=== PATIENT | male | born 1985 | race Two or more races ===

== ENCOUNTER 2022-12-18 10:25 | Inpatient (IN) | payer MEDICAID ==
[~2022-12-18] VITALS: Ht 170.2 cm; Wt 98.0 kg
--- NOTE | 2022-12-18 10:42 | NUR ---
BIBSELF C/O RIGHT UPPER ABDOMINAL PAIN [id number] , + NAUSEA AND VOMITING , NO DIARRHEA. ON MONITOR RIGHT NOW. NOTIFIED
--- NOTE | 2022-12-18 10:47 | NUR ---
IV LINE LEFT AC 18
--- NOTE | 2022-12-18 10:47 | NUR ---
BLOOD SAMPLE TAKEN SENT TO LAB
--- NOTE | 2022-12-18 10:50 | NUR ---
URINE SAMPLE TAKEN SENT TO LAB
[2022-12-18] MEDS ORDERED: ONDANSETRON HCL/PF 4 MG/2 ML VIAL ONE (10:56)
[2022-12-18] MEDS ORDERED: MORPHINE SULFATE INJ 4 MG/ML DISP.SYRIN ONE ×2 (10:57→11:57)
[2022-12-18] MEDS ORDERED: MORPHINE SULFATE INJ 2 MG/ML DISP.SYRIN IV ONE (11:00)
[2022-12-18] MEDS ORDERED: ONDANSETRON HCL/PF 4 MG/2 ML VIAL IVP ONE (11:00)
[2022-12-18] MEDS ORDERED: IV NS 0.9% 500 ML BAG IV ONE (11:00)
[2022-12-18 11:23] LABS: BILIRUBIN,URINE NEGATIVE (NEGATIVE); COLOR,URINE YELLOW (YELLOW); LEUKOCYTE ESTERASE ,URINE NEGATIVE (NEGATIVE); NITRITE, URINE NEGATIVE (NEGATIVE); PROTEIN,URINE TRACE mg/dl (NEGATIVE); UGLUCOSE NEGATIVE (NEGATIVE); UROBILINOGEN,URINE 0.2 EU/dL (0.2)
[2022-12-18 11:31] LABS: CALCIUM, SERUM 9.2 mg/dL (8.5-10.1); CREATININE 0.9 mg/dL (0.6-1.3); POTASSIUM 4.1 mmol/L (3.5-5.1)
[2022-12-18 11:38] LABS: ALBUMIN 4.3 g/dL (3.4-5.0); BILIRUBIN,DIRECT 0.1 mg/dL (0.0-0.2); BILIRUBIN,TOTAL 0.4 mg/dL (0.2-1.0); TOTAL PROTEIN, SERUM 8.3 g/dL (6.4-8.2)
[2022-12-18 11:41] LABS: BASOPHILS % (AUTO) 0.3 % (0.0-2.0); EOSINOPHILS % (AUTO) 0.7 % (0.0-6.0); HEMATOCRIT 47 % (39-51); LYMPHOCYTES % (AUTO) 20.8 % (20.0-44.0); MEAN CORPUSCULAR HGB CONC 34 g/dl (31.0-36.0); MEAN CORPUSCULAR VOLUME 88 fL (80-96); MONOCYTES # (AUTO) 0.8 K/uL (0.1-1.30); MONOCYTES % (AUTO) 5.2 % (2.0-12.0); NEUTROPHILS # (AUTO) 10.6 K/uL (1.8-8.9); PLATELET COUNT (AUTO) 263 K/uL (150-450); RED BLOOD CELL COUNT(AUTO) 5.37 MIL/uL (4.5-6.0); WHITE BLOOD COUNT (AUTO) 14.5 K/uL (4.3-11.0)
[2022-12-18 11:47] LABS: BACTERIA,URINE None seen /HPF (None Seen); MUCUS,URINE Few /LPF (None Seen); SQUAMOUS EPITHELIAL CELL,UR Rare /HPF (None Seen); WBC,URINE 0-2 /HPF (0-3)
[2022-12-18] MEDS ORDERED: LEVOFLOXACIN 750 MG /D5W 150ML 0 ML IV ONE (11:57)
[2022-12-18] MEDS ORDERED: MORPHINE SULFATE INJ 10 MG/ML DISP.SYRIN IV ONE (12:00)
[2022-12-18] MEDS ORDERED: LEVOFLOXACIN 750 MG /D5W 150ML PIGGYBACK IV ONE (12:00)
[2022-12-18] MEDS ORDERED: LEVOFLOXACIN 750 MG /D5W 150ML 150 ML IV ONE (12:02)
--- NOTE | 2022-12-18 12:08 | NUR ---
COVID SWAB TAKEN SENT TO LAB
--- NOTE | 2022-12-18 12:24 | NUR ---
DR. MAC SPEAKING WITH DR. AMBRIZ.
[2022-12-18] MEDS ORDERED: HYDROMORPHONE 1 MG/1 ML DISP.SYRIN IV ONE ×2 (12:30→13:30)
[2022-12-18] MEDS ORDERED: HYDROMORPHONE 1 MG/1 ML DISP.SYRIN ONE ×2 (12:30→13:41)
[2022-12-18] MEDS ORDERED: IV D5/0.45 NACL 1,000 ML IV PRN (13:00)
[2022-12-18] MEDS ORDERED: ONDANSETRON HCL/PF 4 MG/2 ML VIAL IVP PRN (13:00)
--- NOTE | 2022-12-18 13:52 | NUR ---
ROOM 325-1 ADMITTING AWARE
--- NOTE | 2022-12-18 14:06 | NUR ---
TRIED TO GIVE REPORT NO ANSWER
--- NOTE | 2022-12-18 14:12 | NUR ---
FLOOR NURSE NIKOLAI SAID SHE WILL CALL ME TO GET REPORT AFTER 10 MIN .
--- NOTE | 2022-12-18 14:40 | NUR ---
REPORT GIVEN TO NIKOLAI GARCIA
--- NOTE | 2022-12-18 14:49 | NUR ---
MOVED TO INPATIENT ROOM SAFELY PER PROTOCOL
--- NOTE | 2022-12-18 15:30 | NUR ---
MS SPANISH PROFESSOR NOTES RECEIVED PATIENT VIA GURNEY FROM ER AT 1530H ACCOMPANIED BY 2 ER STAFF. WITH ADMITTING DIAGNOSIS OF CHOLECYSTITIS. PATIENT IS AWAKE, A/O X4, VERBALLY RESPONSIVE, OCCITAN SPEAKING, WITH AT BEDSIDE. PATIENT DENIES ANY PAIN AT THIS TIME. NOTED WITH IV ACCESS ON LAC #18-SL, INTACT, PATENT AND FLUSHING WELL. BODY ASSESSMENT DONE, SKIN GENERALLY INTACT. V/S WNL SAFETY MEASURES PUT IN PLACE. BED IN LOW AND LOCKED POSITION, SIDE RAILS UP X2, CALL LIGHT WITHIN EASY REACH; WILL CONTINUE TO MONITOR THE PATIENT
--- NOTE | 2022-12-18 19:30 | NUR ---
MS RN CLOSING NOTES PATIENT IS AWAKE, A/O X4, VERBALLY RESPONSIVE, [place] SPEAKING, WITH FAMILY AT BEDSIDE. NO SIGNS OF ACUTE DISTRESS NOTED. ON ROOM AIR, TOLERATED WELL. NO SOB, BREATHING EVEN AND UNLABORED. NOTED WITH IV ACCESS ON LAC #18-SL, INTACT, PATENT AND FLUSHING WELL. PATIENT DENIES ANY PAIN AT THIS TIME. ALL NURSING NEEDS ATTENDED, SAFETY MEASURES IMPLEMENTED. BED IN LOW AND LOCKED POSITION, SIDE RAILS UP X2, CALL LIGHT WITHIN EASY REACH;WILL ENDORSE TO PLASTIC PANEL INSTALLER NURSE FOR JOSEF.
[2022-12-18 20:00] VITALS: BP 137/83
--- NOTE | 2022-12-18 20:30 | NUR ---
RN MS OPENING NOTES RECEIVED PATIENT IN BED, A/O X 4 CZECH SPEAKING, ON MODERATE HIGH BACK REST POSITION. ON ROOM AIR SATURATING WELL, ON NPO FOR POSSIBLE SURGERY IN AM. WITH IV ACCESS AT RAC #18G WITH D5 1/2 NS1L AT 75ML/HR INFUSING WELL, NO SWELLING OR FILTRATION NOTED AT THIS TIME. FOR HIDA SCAN WITH CONSENT SIGNED AND VERIFIED. AMBULATORY WITH BRP. KEPT PATIENT WARM AND COMFORTABLE, KEPT CALL LIGHT WITHIN AT REACH, KEPT SIDE RAILS UP X 2 ALL THE TIME. NO SOB OR NOTED, NO COMPLAIN OR ANY FORM OF DISTRESS AT THIS TIME. WILL CONTINUE TO MONITOR
[2022-12-18] MEDS: MORPHINE SULFATE INJ 2 MG/ML DISP.SYRIN IV PRN (20:48)
--- NOTE | 2022-12-18 21:00 | NUR ---
RN MS NOTES PATIENT COMPLAIN OF PAIN SCALE OF 9/10 AND FEELING OF NAUSEOUS , PAIN AND ANTIEMETIC MEDICATIONS GIVEN. WILL CONTINUE TO MONITOR.
[2022-12-18] MEDS: METRONIDAZOLE 500MG/ NS 100ML 500 MG in PREMIX 1 EA IV SCH (21:26)
--- NOTE | 2022-12-18 23:11 | NUR ---
RADHA MS NOTES RECEIVED ORDER PATIENT IS FOR LAPAROSCOPIC CHOLECYSTECTOMY POSSIBLE OPEN. CONSENT SIGNED FOR THE PROCEDURE, CONSENT FOR ANESTHESIA SIGNED, CONSENT FOR POSSIBLE BLOOD TRANSFUSION SIGNED. SURGICAL CHECK LIST DONE. PATIENT IS ON NOTHING PER [place] AT 12AM. ANTIBIOTIC IV STARTED AND WELL TOLERATED BY THE PATIENT. WILL CONTINUE TO MONITOR.
[2022-12-19] MEDS: METRONIDAZOLE 500MG/ NS 100ML 500 MG in PREMIX 1 EA IV SCH ×3 (04:53→21:20)
[2022-12-19 06:11] LABS: BASOPHILS % (AUTO) 0.2 % (0.0-2.0); EOSINOPHILS % (AUTO) 0.7 % (0.0-6.0); HEMATOCRIT 45 % (39-51); LYMPHOCYTES # (AUTO) 2.4 K/uL (0.8-4.8); LYMPHOCYTES % (AUTO) 17.4 % (20.0-44.0); MEAN CORPUSCULAR HGB CONC 33 g/dl (31.0-36.0); MEAN CORPUSCULAR VOLUME 88 fL (80-96); MONOCYTES # (AUTO) 1.2 K/uL (0.1-1.30); MONOCYTES % (AUTO) 8.6 % (2.0-12.0); NEUTROPHILS % (AUTO) 73.1 % (43.0-81.0); PLATELET COUNT (AUTO) 248 K/uL (150-450); RED BLOOD CELL COUNT(AUTO) 5.14 MIL/uL (4.5-6.0); WHITE BLOOD COUNT (AUTO) 13.7 K/uL (4.3-11.0)
[2022-12-19 06:28] LABS: CALCIUM, SERUM 8.8 mg/dL (8.5-10.1); CREATININE 0.9 mg/dL (0.6-1.3); MAGNESIUM 1.9 mg/dL (1.8-2.4); PHOSPHORUS 3.6 mg/dL (2.5-4.9); POTASSIUM 3.5 mmol/L (3.5-5.1)
--- NOTE | 2022-12-19 06:38 | NUR ---
RN MS CLOSING NOTES PATIENT IS IN BED, A/O X 4 CITIZEN OF [place] AND [place] SPEAKING ON MODERATE HIGH BACK REST POSITION, ON ROOM AIR SATURATING WELL, NO PAIN OR DISCOMFORT NOTED AT THIS TIME. WITH IV ACCESS AT LAC #18G WITH D5 1/2NS AT 75ML/HR INFUSING WELL NO SWELLING OR INFILTRATION NOTED AT THIS TIME. PATIENT IS FOR LAPAROSCOPIC CHOLECYSTECTOMY POSSIBLE OPEN TODAY WITH CONSENT SIGNED AND VERIFIED. PATIENT IS ON NPO SINCE 12/19 AT 0000H. CHECK LIST DONE. PRE-OP PREPARATION DONE, KEPT BED ON MODERATE HIGH BACK REST POSITION, KEPT SIDE RAILS UP X 2 ALL THE TIME, KEPT CALL LIGHT WITHIN AT REACH. ALL DUE MEDICATIONS GIVEN AND ALL NEEDS ATTENDED, WILL ENDORSED TO NEXT SHIFT FOR JOSEF.
--- NOTE | 2022-12-19 07:45 | NUR ---
RN MS OPENING NOTES RECEIVED PATIENT AWAKE IN BED, A/O X 4 [place] SPEAKING, ON MODERATE HIGH BACK REST POSITION. ON ROOM AIR SATURATING WELL, ON NPO FOR POSSIBLE SURGERY IN PM. WITH IV ACCESS AT RAC #18G WITH D5 1/2 NS1L AT 75ML/HR INFUSING WELL, NO SWELLING OR FILTRATION NOTED AT THIS TIME. FOR HIDA SCAN WITH CONSENT SIGNED AND VERIFIED. AMBULATORY WITH BRP. KEPT PATIENT WARM AND COMFORTABLE, KEPT CALL LIGHT WITHIN AT REACH, KEPT SIDE RAILS UP X 2 ALL THE TIME. NO SOB OR NOTED, NO COMPLAIN OR ANY FORM OF DISTRESS AT THIS TIME. WILL CONTINUE TO MONITOR
[2022-12-19] MEDS ORDERED: Magnesium 1 GM/2 ML VIAL IV ONE (08:30)
[2022-12-19 08:50] LABS: ALBUMIN 3.7 g/dL (3.4-5.0); BILIRUBIN,DIRECT 0.2 mg/dL (0.0-0.2); BILIRUBIN,TOTAL 1.2 mg/dL (0.2-1.0); TOTAL PROTEIN, SERUM 7.6 g/dL (6.4-8.2)
[2022-12-19] MEDS: PANTOPRAZOLE 40 MG VIAL IV SCH (09:27)
[2022-12-19] MEDS: Magnesium 1GM/D5W 100ML PREMIX 100 ML IV SCH ×3 (09:55→12:38)
[2022-12-19] MEDS: LEVOFLOXACIN 750 MG /D5W 150ML 750 MG in PREMIX 1 EA IV SCH (14:18)
[2022-12-19 16:00] VITALS: BP 123/72
[2022-12-19] MEDS ORDERED: FENTANYL PF 250MCG/5ML AMPUL ONE (16:07)
[2022-12-19] MEDS ORDERED: HYDROMORPHONE INJ 2 MG/ML DISP.SYRIN ONE (16:08)
[2022-12-19] MEDS ORDERED: MIDAZOLAM HCL 2 MG/2ML VIAL ONE (16:08)
[2022-12-19] MEDS ORDERED: ROCURONIUM BROMIDE 50 MG/5 ML ONE (16:09)
[2022-12-19] MEDS ORDERED: FAMOTIDINE/PF INJ 20 MG/2 ML VIAL IV ONE (16:09)
[2022-12-19] MEDS ORDERED: CLINDAMYCIN 900 MG/6 ML VIAL ONE (16:09)
[2022-12-19] MEDS ORDERED: ANESTHESIA TRAY IN PYXIS 1 EA TRAY MC ONE (16:10)
[2022-12-19] MEDS ORDERED: BUPIVACAINE MPF 0.5% W/EPI INJ 30 ML VIAL ONE (16:10)
[2022-12-19] MEDS ORDERED: LIDOCAINE 1% INJ 50 ML MDV IJ ONE (16:11)
--- NOTE | 2022-12-19 18:53 | NUR ---
MS RN CLOSING NOTE PATIENT IS IN THE OPERATING ROOM WITH ONGOING SURGERY OF LAPAROSCOPIC CHOLECYSTECTOMY POSSIBLE OPEN PROCEDURE. WILL ENDORSE TO THE CATCHER PLUG NURSE FOR JOSEF.
--- NOTE | 2022-12-19 19:23 | NUR ---
RN OPENING NOTE PATIENT DOWN IN OR STILL. AWAITING PATIENT'S RETURN.
--- NOTE | 2022-12-19 19:45 | NUR ---
RN NOTE PATIENT RETURNED FROM OR. PATIENT ACCOMPANIED BY FAMILY. A/OX4. NO S/S OF DISTRESS, BREATHING WITHOUT DIFFICULTY ON NC 6L. PATIENT EDUCATION GIVEN REGARDING POST-OP TREATMENT PLAN AND GOALS (BREATHING, PASSING GAS, BM, ETC). PATIENT GIVEN INCENTIVE SPIROMETER AND EDUCATED ON USE. PATIENT HAS ALREADY URINATED AFTER RETURN TO UNIT: 280cc. PATIENT STABLE VS: T 97.5 F HR 83 R 24 BP 133/76 02 93 PAIN 0/[address]: BED LOCKED AND AT LOWEST POSITION, RAILS UP X2, CALL CARRANZA WITHIN REACH. WILL CONTINUE TO MONITOR PATIENT.
[2022-12-19 20:00] VITALS: BP 133/76
[2022-12-19] MEDS: IV LR 1000 ML 1,000 ML IV PRN (20:07)
[2022-12-19] MEDS ORDERED: BACITRACIN ZINC OINT PACKET 1 EA PACKET TP ONE (20:30)
[2022-12-19] MEDS: CELECOXIB 100 MG CAPSULE PO SCH (21:20)
[2022-12-19] MEDS: ACETAMINOPHEN 325 MG TABLET PO SCH (21:21)
[2022-12-19] MEDS: GABAPENTIN 100 MG CAPSULE PO SCH (21:21)
[2022-12-20] MEDS: GABAPENTIN 100 MG CAPSULE PO SCH ×3 (04:55→21:21)
[2022-12-20] MEDS: METRONIDAZOLE 500MG/ NS 100ML 500 MG in PREMIX 1 EA IV SCH ×3 (04:55→21:22)
[2022-12-20] MEDS: ACETAMINOPHEN 325 MG TABLET PO SCH ×3 (04:55→21:21)
[2022-12-20] MEDS: IV LR 1000 ML 1,000 ML IV PRN ×2 (04:56→23:34)
[2022-12-20 06:09] LABS: BASOPHILS % (AUTO) 0.1 % (0.0-2.0); EOSINOPHILS % (AUTO) 0.1 % (0.0-6.0); HEMATOCRIT 41 % (39-51); HEMOGLOBIN 13.8 g/dL (13.5-17.5); LYMPHOCYTES # (AUTO) 1.3 K/uL (0.8-4.8); LYMPHOCYTES % (AUTO) 10.8 % (20.0-44.0); MEAN CORPUSCULAR HGB CONC 34 g/dl (31.0-36.0); MEAN CORPUSCULAR VOLUME 89 fL (80-96); MONOCYTES # (AUTO) 0.8 K/uL (0.1-1.30); MONOCYTES % (AUTO) 6.8 % (2.0-12.0); NEUTROPHILS # (AUTO) 9.9 K/uL (1.8-8.9); NEUTROPHILS % (AUTO) 82.2 % (43.0-81.0); PLATELET COUNT (AUTO) 226 K/uL (150-450); RED BLOOD CELL COUNT(AUTO) 4.66 MIL/uL (4.5-6.0); WHITE BLOOD COUNT (AUTO) 12.1 K/uL (4.3-11.0)
[2022-12-20] MEDS: MORPHINE SULFATE INJ 2 MG/ML DISP.SYRIN IV PRN (06:23)
[2022-12-20 06:31] LABS: ALBUMIN 3.1 g/dL (3.4-5.0); BILIRUBIN,DIRECT 0.2 mg/dL (0.0-0.2); BILIRUBIN,TOTAL 1.1 mg/dL (0.2-1.0); CALCIUM, SERUM 8.5 mg/dL (8.5-10.1); CREATININE 0.9 mg/dL (0.6-1.3); MAGNESIUM 2.3 mg/dL (1.8-2.4); PHOSPHORUS 3.8 mg/dL (2.5-4.9); POTASSIUM 4.2 mmol/L (3.5-5.1); TOTAL PROTEIN, SERUM 7.1 g/dL (6.4-8.2)
--- NOTE | 2022-12-20 06:53 | NUR ---
RN NOTE PATIENT AWAKE IN BED. A/OX4. NO S/S OF DISTRESS, BREATHING WITHOUT DIFFICULTY ON 2L NC. LAC #18 INTACT AND PATENT W/ 125ML/HR. SAFETY MEASURES IN PLACE: BED LOCKED AND AT LOWEST POSITION, RAILS UP X2, CALL CARRANZA WITHIN REACH. WILL ENDORSE TO NEXT SHIFT FOR JOSEF.
--- NOTE | 2022-12-20 07:30 | NUR ---
RN MS NOTES PT IN BED, ASLEEP, NO SIGN OF PAIN OR DISTRESS, RESPIRATIONS NORMAL, CALL LIGHT WITHIN REACH.
[2022-12-20 08:00] VITALS: BP 96/44
[2022-12-20] MEDS: PANTOPRAZOLE 40 MG VIAL IV SCH (08:41)
[2022-12-20] MEDS: CELECOXIB 100 MG CAPSULE PO SCH ×2 (08:41→21:22)
[2022-12-20] MEDS: LEVOFLOXACIN 750 MG /D5W 150ML 750 MG in PREMIX 1 EA IV SCH (14:39)
--- NOTE | 2022-12-20 18:55 | NUR ---
RN MS NOTES PT IN BED, RESTING, NO COMPLAINT OF PAIN OR ANY DISCOMFORT, IV FLUIDS INFUSING WELL, ON FULL LIQUID DIET, TOLERATING WELL, ALL NEEDS ATTENDED.
[2022-12-20 20:00] VITALS: BP 91/42
--- NOTE | 2022-12-20 20:05 | NUR ---
RN OPENING NOTE PATIENT AWAKE IN BED W/ FAMILY AT BEDSIDE. A/OX4. NO S/S OF DISTRESS, BREATHING WITHOUT DIFFICULTY ON 2L NC. LAC #18 INTACT AND PATENT W/ LR 125ML/HR. SAFETY MEASURES IN PLACE: BED LOCKED AND AT LOWEST POSITION, RAILS UP X2, CALL CARRANZA WITHIN REACH. WILL CONTINUE TO MONITOR PATIENT.
[2022-12-21] MEDS: GABAPENTIN 100 MG CAPSULE PO SCH ×3 (05:28→21:11)
[2022-12-21] MEDS: ACETAMINOPHEN 325 MG TABLET PO SCH ×3 (05:29→21:11)
[2022-12-21] MEDS: METRONIDAZOLE 500MG/ NS 100ML 500 MG in PREMIX 1 EA IV SCH ×3 (05:29→21:11)
[2022-12-21 06:13] LABS: BASOPHILS % (AUTO) 0.2 % (0.0-2.0); EOSINOPHILS % (AUTO) 0.9 % (0.0-6.0); HEMATOCRIT 40 % (39-51); HEMOGLOBIN 13.7 g/dL (13.5-17.5); LYMPHOCYTES # (AUTO) 3.8 K/uL (0.8-4.8); LYMPHOCYTES % (AUTO) 34.5 % (20.0-44.0); MEAN CORPUSCULAR HGB CONC 34 g/dl (31.0-36.0); MEAN CORPUSCULAR VOLUME 88 fL (80-96); MONOCYTES # (AUTO) 0.8 K/uL (0.1-1.30); MONOCYTES % (AUTO) 7.6 % (2.0-12.0); NEUTROPHILS # (AUTO) 6.2 K/uL (1.8-8.9); NEUTROPHILS % (AUTO) 56.8 % (43.0-81.0); PLATELET COUNT (AUTO) 213 K/uL (150-450); RED BLOOD CELL COUNT(AUTO) 4.54 MIL/uL (4.5-6.0)
[2022-12-21 06:42] LABS: ALBUMIN 2.8 g/dL (3.4-5.0); BILIRUBIN,DIRECT 0.1 mg/dL (0.0-0.2); BILIRUBIN,TOTAL 0.7 mg/dL (0.2-1.0); CALCIUM, SERUM 8.5 mg/dL (8.5-10.1); CREATININE 0.9 mg/dL (0.6-1.3); MAGNESIUM 2.2 mg/dL (1.8-2.4); POTASSIUM 3.9 mmol/L (3.5-5.1); TOTAL PROTEIN, SERUM 6.6 g/dL (6.4-8.2)
[2022-12-21 07:00] VITALS: BP 114/65
--- NOTE | 2022-12-21 07:02 | NUR ---
RN CLOSING NOTE PATIENT ASLEEP IN BED. A/OX4. NO S/S OF DISTRESS, BREATHING WITHOUT DIFFICULTY ON 2L NC. LAC #18 INTACT AND PATENT W/ LR 125ML/HR. AURELIO DRAIN IS SEROSANGUINEOUS, WITH A DRAINAGE AMOUNT OF 150cc. PATIENT ON PREVIOUS HAM PUMPER WAS SANGUINOUS, AND ONLY DRAINING AT 100cc. SAFETY MEASURES IN PLACE: BED LOCKED AND AT LOWEST POSITION, RAILS UP X2, CALL CARRANZA WITHIN REACH. WILL ENDORSE TO NEXT SHIFT FOR JOSEF.
--- NOTE | 2022-12-21 07:23 | NUR ---
MS RN OPENING NOTES RECEIVED PATIENT AWAKE, A/O X 4. INDIAN SPEAKING AND UNDERSTAND SOME TONGAN, DENIES PAIN OR ANY DISCOMFORTS AT THIS TIME. ON SUPPLEMENTAL 02 VIA N/C @ 2LPM, TOLERATING WELL, BREATHING EVEN AND UNLABORED. IV ACCESS AT LAC #18G INTACT WITH LR @ 125ML/HR INFUSING WELL, NO S/S OF INFILTRATIONS NOTED. SURGICAL DRESSINGS ON ABDOMEN C/D/I. AURELIO DRAIN IN PLACE WITH LIGHT YELLOWISH COLORED DRAINAGE OUTPUT NOTED. SAFETY MEASURES IN PLACE: BED IN LOWEST LOCKED POSITION, SR UP X2 , CALL LIGHT AND TRAY TABLE W/I EASY REACH OF PT. WILL CONTINUE TO MONITOR
[2022-12-21] MEDS: CELECOXIB 100 MG CAPSULE PO SCH ×2 (09:24→21:11)
[2022-12-21] MEDS: PANTOPRAZOLE 40 MG TABLET.DR PO SCH (09:24)
[2022-12-21] MEDS: IV LR 1000 ML 1,000 ML IV PRN (12:58)
[2022-12-21] MEDS: LEVOFLOXACIN 750 MG /D5W 150ML 750 MG in PREMIX 1 EA IV SCH (14:09)
[2022-12-21 15:52] VITALS: BP 115/67
--- NOTE | 2022-12-21 18:49 | NUR ---
MS RN CLOSING NOTES PATIENT IN BED WATCHING TV AT THIS TIME. AT BEDSIDE. A/O X 4. UZ[place] SPEAKING AND UNDERSTAND SOME [place]ICAN CITIZEN. ON ROOM AIR AT THIS TIME, TOLERATING WELL, BREATHING EVEN AND UNLABORED, NO SOB NOTED. IV ACCESS AT LAC #18G INTACT WITH LR @ 125ML/HR INFUSING WELL, NO S/S OF INFILTRATIONS NOTED. SURGICAL DRESSINGS ON ABDOMEN C/D/I. AURELIO DRAIN IN PLACE WITH SEROSANGUINEOUS DRAINAGE NOTED AT THIS TIME. ALL NEEDS AND CARE ATTENDED WELL. SAFETY MEASURES IN PLACE: BED IN LOWEST LOCKED POSITION, SR UP X2 , CALL LIGHT AND TRAY TABLE W/I EASY REACH OF PT. WILL ENDORSE JOSEF TO SQUEEGEER AND FORMER NURSE.
[2022-12-21 20:00] VITALS: BP 126/73
[2022-12-22] MEDS: IV LR 1000 ML 1,000 ML IV PRN ×2 (03:15→17:31)
[2022-12-22] MEDS: METRONIDAZOLE 500MG/ NS 100ML 500 MG in PREMIX 1 EA IV SCH (04:33)
[2022-12-22] MEDS: GABAPENTIN 100 MG CAPSULE PO SCH ×3 (04:33→20:20)
[2022-12-22] MEDS: ACETAMINOPHEN 325 MG TABLET PO SCH ×3 (04:33→20:20)
[2022-12-22 06:19] LABS: BASOPHILS % (AUTO) 0.1 % (0.0-2.0); EOSINOPHILS % (AUTO) 1.9 % (0.0-6.0); HEMATOCRIT 43 % (39-51); HEMOGLOBIN 14.7 g/dL (13.5-17.5); LYMPHOCYTES % (AUTO) 31.9 % (20.0-44.0); MEAN CORPUSCULAR HGB CONC 34 g/dl (31.0-36.0); MEAN CORPUSCULAR VOLUME 88 fL (80-96); MONOCYTES # (AUTO) 0.7 K/uL (0.1-1.30); MONOCYTES % (AUTO) 7.2 % (2.0-12.0); NEUTROPHILS # (AUTO) 5.5 K/uL (1.8-8.9); NEUTROPHILS % (AUTO) 58.9 % (43.0-81.0); PLATELET COUNT (AUTO) 234 K/uL (150-450); RED BLOOD CELL COUNT(AUTO) 4.92 MIL/uL (4.5-6.0); WHITE BLOOD COUNT (AUTO) 9.4 K/uL (4.3-11.0)
--- NOTE | 2022-12-22 06:34 | NUR ---
RN CLOSING NOTE PATIENT ASLEEP IN BED. A/OX4. NO S/S OF DISTRESS, BREATHING WITHOUT DIFFICULTY ON ROOM AIR. LAC #18 W/ LR 125ML/HR. SAFETY MEASURES IN PLACE: BED LOCKED AND AT LOWEST POSITION, RAILS UP X2, CALL CARRANZA WITHIN REACH. WILL ENDORSE TO NEXT SHIFT FOR JOSEF.
[2022-12-22 06:40] LABS: CALCIUM, SERUM 8.7 mg/dL (8.5-10.1); CREATININE 0.9 mg/dL (0.6-1.3); MAGNESIUM 2.1 mg/dL (1.8-2.4); PHOSPHORUS 3.7 mg/dL (2.5-4.9); POTASSIUM 3.9 mmol/L (3.5-5.1)
[2022-12-22 08:00] VITALS: BP 114/70
--- NOTE | 2022-12-22 08:04 | NUR ---
MS RN OPENING NOTES RECEIVED PATIENT IN BED, CALM, AOX4, HAITIAN SPEAKING, BREATHING ON ROOM AIR WITHOUT ANY DIFFICULTY. DENIED PAIN, DISCOMFORT, NAUSEA/VOMITING AT THE MOMENT. S/P LAP EMILY WITH DR MAC, DRESSING INTACT, CLEAN AND NO SIGNS OF ACTIVE BLEEDING. AURELIO DRAIN IS DRAINING SCANT SEROSANGUINEOUS DISCHARGE OF ABOUT 5CC, DRAINING WELL. IV ACCESS ON LAC G#18 WITH LR RUNNING AT 125/ML, PATENT, FLUSHING WELL. AMBULATORY WITH ASSISTANCE AT THE MOMENT, USES THE URINAL. SAFETY MEASURES IN PLACE: BED IN LOWEST AND LOCKED POSITION, SIDE RAILS UP X2, CALL LIGHT AND TRAY TABLE WITHIN EASY REACH.
[2022-12-22] MEDS: CELECOXIB 100 MG CAPSULE PO SCH ×2 (09:44→20:20)
[2022-12-22] MEDS: PANTOPRAZOLE 40 MG TABLET.DR PO SCH (09:45)
[2022-12-22] MEDS: METRONIDAZOLE 500 MG TABLET PO SCH ×2 (12:28→20:20)
[2022-12-22] MEDS: LEVOFLOXACIN (250MG) 250 MG TABLET PO SCH (14:22)
[2022-12-22 16:00] VITALS: BP_SYST 113
--- NOTE | 2022-12-22 19:20 | NUR ---
MS RN OPENING NOTE RECEIVED PT AWAKE IN BED. A/O X4, [place] SPEAKING, AND ABLE TO MAKE NEEDS KNOWN. FAMILY AT BEDSIDE. PT STABLE ON ROOM AIR. NO SOB OR S/S OF RESPIRATORY DISTRESS. BREATHING EVEN AND UNLABORED. IV ACCESS LAC 18G, INTACT AND PATENT, RUNNING LR @ 125 ML/HR. AURELIO DRAIN IN PLACE. NO COMPLAINTS OF PAIN OR DISCOMFORT AT THIS TIME. SAFETY PRECAUTIONS IN PLACE. BED IN LOWEST LOCKED POSITION, HOB ELEVATED, SIDE RAILS UP X2, AND CALL LIGHT AND TABLE WITHIN REACH. ALL NEEDS MET AT THIS TIME.
--- NOTE | 2022-12-22 19:37 | NUR ---
MS RN CLOSING NOTE PT AWAKE IN BED WITH AND 2 CHILDREN AT BEDSIDE, A/O X4, CZECH SPEAKING, AND ABLE TO MAKE NEEDS KNOWN. PT STABLE ON ROOM AIR. NO SOB OR S/S OF RESPIRATORY DISTRESS. IV ACCESS LAC 18G, INTACT AND PATENT, RUNNING LR @ 125 ML/HR. DRAINED 15 ML FROM THE AURELIO DRAIN. NO COMPLAINTS OF PAIN OR DISCOMFORT AT THIS TIME. ALL DUE MEDS GIVEN, ALL NEEDS MET. SAFETY PRECAUTIONS IN PLACE: BED IN LOWEST LOCKED POSITION, HOB ELEVATED, SIDE RAILS UP X2, AND CALL LIGHT AND TABLE WITHIN REACH. ENDORSED TO LICENSE DISTRIBUTOR NURSE.
[2022-12-22 20:00] VITALS: BP 116/66
[2022-12-23] MEDS: IV LR 1000 ML 1,000 ML IV PRN (02:30)
[2022-12-23] MEDS: METRONIDAZOLE 500 MG TABLET PO SCH ×2 (04:42→13:01)
[2022-12-23] MEDS: GABAPENTIN 100 MG CAPSULE PO SCH ×2 (04:42→13:02)
[2022-12-23] MEDS: ACETAMINOPHEN 325 MG TABLET PO SCH ×2 (04:43→13:02)
--- NOTE | 2022-12-23 06:30 | NUR ---
MS RN CLOSING NOTE PT RESTING IN BED, VERBALLY RESPONSIVE. A/O X4, ROMANSH SPEAKING, AND ABLE TO MAKE NEEDS KNOWN. PT STABLE ON ROOM AIR. NO SOB OR S/S OF RESPIRATORY DISTRESS. BREATHING EVEN AND UNLABORED. IV ACCESS LAC 18G, INTACT AND PATENT, RUNNING LR @ 125 ML/HR. AURELIO DRAIN IN PLACE, DRAINED 25 CC OF SEROUS DRAINAGE THIS SHIFT. NO COMPLAINTS OF PAIN OR DISCOMFORT AT THIS TIME. ALL DUE MEDS GIVEN ORDERED. SAFETY PRECAUTIONS IN PLACE AT ALL TIMES. BED IN LOWEST LOCKED POSITION, HOB ELEVATED, SIDE RAILS UP X2, AND CALL LIGHT AND TABLE WITHIN REACH. ALL NEEDS MET AT THIS TIME AND WILL ENDORSE TO ONCOMING NURSE FOR JOSEF.
--- NOTE | 2022-12-23 07:32 | NUR ---
MS RN OPENING NOTES RECEIVED PATIENT SLEEPING COMFORTABLY IN BED, EASILY AWAKEN, AOX4, HUNGARIAN SPEAKING, BREATHINGON ROOM AIR WITHOUT ANY DIFFICULTY. DENIED PAIN, DISCOMFORT, NAUSEA/VOMITING AT THE MOMENT. S/P LAP EMILY WITH DR MAC, DRESSING INTACT, CLEAN AND NO SIGNS OF ACTIVE BLEEDING. AURELIO DRAIN IS DRAINING SCANT SEROSANGUINEOUS DISCHARGE OF ABOUT 5CC, DRAINING WELL. IV ACCESS ON LAC G#18 WITH LR RUNNING AT 125/ML, PATENT, FLUSHING WELL. AMBULATORY WITH ASSISTANCE AT THE MOMENT, USES THE URINAL. SAFETY MEASURES IN PLACE: BED IN LOWEST AND LOCKED POSITION, SIDE RAILS UP X2, CALL LIGHT AND TRAY TABLE WITHIN EASY REACH. Addendum: 12/23/22 at 0733 by CHRISTOPHER GAONA RN DISREGARD
--- NOTE | 2022-12-23 07:33 | NUR ---
MS RN OPENING NOTES RECEIVED PATIENT SLEEPING COMFORTABLY IN BED, EASILY AWAKEN, AOX4, UZBE[place] SPEAKING, ON ROOM AIR WITHOUT ANY DIFFICULTY, NO S/SX OF ACUTE DISTRESS, ABDOMINAL DRESSING INTACT, CLEAN AND NO SIGNS OF ACTIVE BLEEDING. AURELIO DRAIN IS DRAINING SCANT SEROUS DISCHARGE, DRAINING WELL. IV ACCESS ON LAC G#18 WITH LR RUNNING AT 125/ML, PATENT, FLUSHING WELL. SAFETY MEASURES IN PLACE: BED IN LOWEST AND LOCKED POSITION, SIDE RAILS UP X2, CALL LIGHT AND TRAY TABLE WITHIN EASY REACH. WILL CONTINUE TO MONITOR DURING MY ENTIRE SHIFT.
[2022-12-23 08:00] VITALS: BP 138/86
[2022-12-23] MEDS: PANTOPRAZOLE 40 MG TABLET.DR PO SCH (09:31)
[2022-12-23] MEDS: CELECOXIB 100 MG CAPSULE PO SCH (09:31)
[2022-12-23] MEDS: LEVOFLOXACIN (250MG) 250 MG TABLET PO SCH (13:05)
--- NOTE | 2022-12-23 15:06 | NUR ---
RN NOTES ASSISTED DR MAC TO REMOVE AURELIO DRAIN AT BEDSIDE ASEPTICALLY, COVERED WITH GAUZE, NO BLEEDING NOTED. FOLLOW UP ON DECEMBER 28, 2022.
--- NOTE | 2022-12-23 16:20 | NUR ---
MS WALLPAPER HANGER NOTES DISCHARGED PATIENT TO HOME IN STABLE CONDITION, PATIENT IS AOX4, DANISH SPEAKING, ABLE TO MAKE NEEDS FULLY KNOWN, STABLE ON ROOM AIR, DENIED PAIN NOR DISCOMFORT THE MOMENT, S/P LAPAROSCOPIC CHOLECYSTECTOMY WITH INCISION COVERED WITH DRESSINGS C/D/I, AURELIO DRAIN REMOVED. IV ACCESS REMOVED AT LAC G#18, NO ACTIVE BLEEDING NOTED, PRESSURE GAUZE APPLIED. DISCHARGE INSTRUCTIONS GIVEN WITH VOUCHER EXAMINER. PATIENT IS AMBULATORY. ALL BELONGINGS ACCOUNTED FOR AND FORM SIGNED. PATIENT LEFT THE UNIT VIA WHEELCHAIR WITH 2 CHILDREN AND . HE WAS ACCOMPANIED BY A FELT MACHINE MECHANIC TO THE LOBBY SAFELY. MD AND CHARGE NURSE AWARE OF THE DC.
== END 2022-12-23 16:20 | disposition home or self-care (01) | DRG 263 ==
LOC: ER 10:32 → MED 13:55
PROVIDERS: ATTEND Nurse Practitioner Acute Care
PROC: 0FT44ZZ Resection of Gallbladder, Percutaneous Endoscopic Approach (ICD-10-PCS; principal; 2022-12-19)
DX: K80.12 Calculus of gallbladder with acute and chronic cholecystitis without obstruction (principal); N17.0 Acute kidney failure with tubular necrosis; R74.01 Elevation of levels of liver transaminase levels; K76.0 Fatty (change of) liver, not elsewhere classified; K90.49 Malabsorption due to intolerance, not elsewhere classified; Z20.822 Contact with and (suspected) exposure to COVID-19; Z88.0 Allergy status to penicillin; Z88.2 Allergy status to sulfonamides
CPT/HCPCS: 36415; 76705-TC; 78226; 80048-TC; 80076-TC; 81001; 83690-TC; 83735-TC; 84100-TC; 85025-TC; 86850-TC; 87081-TC; 88304-TC; 97112-TC; 97116-TC; 97530-TC; A4216; A4223; A6253; A9537; C9113; C9803; G0378; J1100; J1170; J1956; J2250; J2270; J2405; J2704; J2765; J3010; J3475; J3490; J7030; J7120